=== PATIENT | female | born 1965 | race Caucasian/White ===

== ENCOUNTER 2020-06-10 06:17 | Emergency (ER) | payer BC ==
[2020-06-10 07:01] VITALS: TEMP 97.2; O2SAT 96
--- NOTE | 2020-06-10 07:06 | ED.PDOC ---
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 gets about one urine infection a year. 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 states she has chronically elevated wbc, was seen by ed teacher. Allergies/Adverse Reactions: Allergies Lisinopril Adverse Reaction (Verified 06/10/20 07:01) Home Medications: Ambulatory Orders Sulfamethoxazole-Trimethoprim [Bactrim Ds 800-160 mg] 1 tab PO BID #6 tab 06/10/20 Review of Systems - Review of Systems Constitutional: Denies: chills, fever, malaise EENTM: Denies: blurred vision, ear pain Respiratory: Denies: cough, short of breath Cardiology: Denies: chest pain, palpitations Gastrointestinal/Abdominal: Denies: abdominal pain, diarrhea, nausea, vomiting Genitourinary: States: dysuria, frequency. Denies: discharge, hematuria Musculoskeletal: States: back pain. Denies: joint swelling, neck pain Skin: Denies: dryness, rash Neurological: Denies: anxiety, depressed, headache, weakness Endocrine: Denies: unexplained weight gain, unexplained weight loss Hematologic/Lymphatic: Denies: easy bleeding, easy bruising Past Medical History (General) - Patient Medical History Hx Stroke: No Hx of COPD: No Hx Cardiac Disorders: No Hx Hypertension: No Hx Diabetes: No Hx Cancer: No Surgical History: other - Vaccination History Hx Influenza Vaccination: Yes Hx Pneumococcal Vaccination: No - Social History Hx Tobacco Use: Yes Hx Alcohol Use: No Hx Substance Use: No Hx Substance Use Treatment: No Hx Depression: No - Female History Patient is a Female of Child Bearing Age (10 -59 yrs old): No Patient : No Family Medical History - Family History Mother Family History: No Known Living Status: Still Living Physical Exam - Physical Exam General Appearance: Alert, Comfortable, No apparent distress, Well Developed, Well Groomed, Well Hydrated, Well Nourished Eyes, Ears, Nose, Throat Exam: normal ENT inspection Neck: non-tender, full range of motion, supple Cardiovascular/Respiratory: regular rate, rhythm, no M/R/G, normal peripheral pulses, no JVD, normal breath sounds, no respiratory distress Gastrointestinal/Abdominal: normal bowel sounds, non tender, soft, no organomegaly Rectal Exam: deferred Back Exam: normal inspection, no CVA tenderness, no vertebral tenderness Extremity: normal range of motion, non-tender, normal inspection, no pedal edema, no calf tenderness Neurologic: no motor/sensory deficits, alert, normal mood/affect, oriented x 3 Skin Exam: normal color, warm/dry Progress - Progress Progress: 06/10/20 08:20 06/10/20 07:13 URINE CULTURE W/COLONY COUNT Stat Laboratory Results WBC 14.2 K/mm3 (4.8-10.8) H 06/10/20 07:13 RBC 4.94 M/mm3 (4.20-5.40) 06/10/20 07:13 Hgb 14.8 gm/dL (12.0-16.0) 06/10/20 07:13 Hct 44.2 % (36.0-47.0) 06/10/20 07:13 MCV 89.5 fl (81.0-99.0) 06/10/20 07:13 MCH 30.0 pg (27.0-31.0) 06/10/20 07:13 MCHC 33.5 g/dL (33.0-37.0) 06/10/20 07:13 RDW 14.2 % (11.5-14.5) 06/10/20 07:13 Plt Count 391 K/mm3 (130-400) 06/10/20 07:13 MPV 7.6 fl (7.40-10.4) 06/10/20 07:13 Absolute Neuts (auto) 10.10 K/uL (1.8-6.8) H 06/10/20 07:13 Absolute Lymphs (auto) 2.70 K/uL (1.0-3.4) 06/10/20 07:13 Absolute Monos (auto) 1.00 K/uL (0.2-0.8) H 06/10/20 07:13 Absolute Eos (auto) 0.30 K/uL (0.0-0.4) 06/10/20 07:13 Absolute Basos (auto) 0.10 K/uL (0.0-0.1) 06/10/20 07:13 Neutrophils % 71.4 % (42.0-78.0) 06/10/20 07:13 Lymphocytes % 19.1 % (20.0-50.0) L 06/10/20 07:13 Monocytes % 6.7 % (2.0-9.0) 06/10/20 07:13 Eosinophils % 2.3 % (1.0-5.0) 06/10/20 07:13 Basophils % 0.5 % (0.0-2.0) 06/10/20 07:13 Sodium 141 mmol/L (135-145) 06/10/20 07:13 Potassium 4.1 mmol/L (3.6-5.0) 06/10/20 07:13 Chloride 105 mmol/L (101-111) 06/10/20 07:13 Carbon Dioxide 23 mmol/L (21-31) 06/10/20 07:13 Anion Gap 17.1 (12-18) 06/10/20 07:13 BUN 15 mg/dL (7-18) 06/10/20 07:13 Creatinine 1.29 mg/dL (0.6-1.3) 06/10/20 07:13 BUN/Creatinine Ratio 11.6 (10-20) 06/10/20 07:13 Random Glucose 103 mg/dL (70-105) 06/10/20 07:13 Serum Osmolality 282.3 mOsm/L (275-295) 06/10/20 07:13 Calcium 8.9 mg/dL (8.4-10.2) 06/10/20 07:13 Total Bilirubin 0.7 mg/dL (0.2-1.0) 06/10/20 07:13 AST 27 IU/L (10-42) 06/10/20 07:13 ALT 21 IU/L (10-60) 06/10/20 07:13 Alkaline Phosphatase 64 IU/L (42-121) 06/10/20 07:13 Serum Total Protein 7.7 gm/dL (6.4-8.2) 06/10/20 07:13 Albumin 4.3 g/dl (3.2-5.5) 06/10/20 07:13 Globulin 3.4 gm/dL (2.3-3.5) 06/10/20 07:13 Albumin/Globulin Ratio 1.3 (1.1-1.9) 06/10/20 07:13 Urine Color Yellow (Yellow) 06/10/20 07:13 Urine Appearance Sl cloudy (Clear) 06/10/20 07:13 Urine pH 5.5 (4.5-7.8) 06/10/20 07:13 Ur Specific [place] 1.010 (1.005-1.030) 06/10/20 07:13 Urine Protein Negative mg/dL 06/10/20 07:13 Urine Glucose (UA) Negative mg/dL (Negative) 06/10/20 07:13 Urine Ketones Negative mg/dL (NEGATIVE) 06/10/20 07:13 Urine Blood Moderate (Negative) H 06/10/20 07:13 Urine Nitrite Negative 06/10/20 07:13 Urine Bilirubin Negative (NEGATIVE) 06/10/20 07:13 Urine Urobilinogen 0.2 mg/dL (0.2-1.0) 06/10/20 07:13 Ur Leukocyte Esterase Small (Negative) H 06/10/20 07:13 Urine RBC 1-3 /hpf 06/10/20 07:13 Urine WBC 20-30 /hpf H 06/10/20 07:13 Ur Epithelial Cells 1-3 /hpf 06/10/20 07:13 Urine Bacteria 0 06/10/20 07:13 - Results/Orders Results/Orders: Patient given 1 gram ceftriaxone here. Will get ct scan due to the blood and back pain. The data reviewed when caring for this patient included: nurse notes, prior records, etc. The history and assessments from nurses notes were reviewed and considered, and the patient's home medication list was also reviewed and considered. My assessment and the results of testing completed here in the ED were discussed with the patient/family. All questions were answered, and they express understanding of my assessment and the plan. They have been instructed to return if their symptoms worsen, and have been asked to follow up with their primary care physician and reel blade bender furnace tender to recheck today's presenting complaint. Strict return precautions given. I have reviewed medication, benefits, alternatives and side effects. Patient decided to proceed with medication. Nadia Ferro DO #801 - EKG/XRAY/CT CT: abd/pelvis: no evidence of ureter or renal stone Departure - Departure Clinical Impression: Urinary tract infection Qualifiers: Urinary tract infection type: acute cystitis Hematuria presence: with hematuria Qualified Code(s): N30.01 - Acute cystitis with hematuria Time of Disposition: 08:04 Disposition: Discharge to Home or Self Care Departure Forms: ED Discharge - Pt. Copy, Patient Portal Self Enrollment Instructions: Urinary Tract Infections in Adults, Acute Cystitis (DC) Diet: resume usual diet Activity: increase activity as tolerated Prescriptions: Sulfamethoxazole-Trimethoprim [Bactrim Ds 800-160 mg] 1 tab PO BID #6 tab Home Medications: Ambulatory Orders Sulfamethoxazole-Trimethoprim [Bactrim Ds 800-160 mg] 1 tab PO BID #6 tab 06/10/20
[2020-06-10] MEDS ORDERED: cefTRIAXone SODIUM 1 GM in SODIUM CHL 0.9% 50ML MIN-BAG+ 50 ML IVPB ONE (07:19)
[2020-06-10] MEDS ORDERED: cefTRIAXone SODIUM 1 GM VIAL IM ONE (07:23)
[2020-06-10] MEDS ORDERED: LIDOCAINE 1% 10 ML VIAL INJ ONE (07:28)
--- NOTE | 2020-06-10 07:58 | CT ---
CT scan of the abdomen and pelvis without contrast HISTORY:flank pain MAIN TECHNIQUE:Helical CT examination of the abdomen and pelvis was performed from the top of the domes of the diaphragm to the pubic symphysis without the administration of intravenous or oral contrast as per renal stone protocol. Sagittal and coronal reconstructions were performed for review. This exam was performed according to our departmental dose-optimization program, which includes automated exposure control, adjustment of the mA and/or kV according to patient size and/or use of iterative reconstruction technique COMPARISON:None FINDINGS: Lower chest:The lower lung parenchyma appears unremarkable there is no infiltrate, effusion or pneumothorax. ABDOMEN: Organs:There is fatty infiltration of the liver. The liver is otherwise normal with no evidence for mass or intrahepatic biliary ductal dilatation. There are several stones seen within the gallbladder. There is no evidence for acute cholecystitis. The pancreas, adrenal glands and spleen appear unremarkable. Kidneys:The kidneys appear unremarkable. There is no evidence for hydronephrosis or stone. The ureters are normal along their entire course. Bowel:There are several diverticuli seen extending off the descending colon and sigmoid colon. There is no evidence for diverticulitis. There is no evidence for bowel obstruction. There is no evidence for acute appendicitis. Aorta/retroperitoneum:The aorta is normal in caliber. There is no pathologically enlarged adenopathy. PELVIS: The bladder appears unremarkable. There is no evidence for stone. Bones and soft tissues:The osseous structures appear unremarkable. There are no soft tissue abnormalities. IMPRESSION: Fatty infiltration of the liver Cholelithiasis no evidence for acute cholecystitis No acute abnormality. Electronically signed by: Félix Kirk MD 06/10/2020 7:57 AM ORDER PACKER
[2020-06-10 08:16] VITALS: BP 107/73
== END 2020-06-10 08:10 | disposition home or self-care (01) ==
LOC: ER 06:17
DX: N30.01 Acute cystitis with hematuria (principal); Z88.8 Allergy status to other drugs, medicaments and biological substances; Z87.891 Personal history of nicotine dependence; Z87.440 Personal history of urinary (tract) infections
CPT/HCPCS: 36415; 74176; 80053; 81001; 85025; 87086; J0696